=== PATIENT | male | born 1980 ===

== ENCOUNTER → 2020-11-02 | Outpatient (REF) ==
--- NOTE | 2020-11-02 10:39 | REPPI ---
INDICATION: BROKEN RIGHT HAND. COMPARISON: None. TECHNIQUE: Four views FINDINGS: The joint spaces are symmetric and relatively well maintained. There is no evidence of acute fracture or destructive osseous lesion. IMPRESSION: Negative hand. <Electronically signed by Don Carlin > 11/02/20 [id number]
== END ==
LOC: M PLAIMG 10:14
PROVIDERS: ATTEND Internal Medicine
DX: M79.641 Pain in right hand (principal)